=== PATIENT | female | born 1960 | race Caucasian/White ===

== ENCOUNTER → 2017-10-27 | Outpatient (CLI) | payer MEDICARE, OTHER ==
[~2017-10-27] MED LIST: ACYC800 PO; AMLO10 PO; AMLO5 PO; AMOCLA500 PO; AMOCLA875 PO; AMOX875 PO; ASPI81CH PO; ASPI81EC PO; BASAGLAR K100 UNIT/1 SQ; BUME1 PO; CEPH500 PO; CLIN150 PO; CYAN500 PO; Cinnamon500 MG PO; DOCU100 PO; FENT25TP TOP; FERR325 PO; FERSU220EL PO; GABA100 PO; GLIM4 PO; GLIP5 PO; GLIP5ER PO; GUAI120S1 PO; HYDMOR2 PO; HYDR1TAB94 PO; Humalog100 UNIT/1 SC; IBUHYD PO; INSDET100 SC; INSULANPEN; LAVAP17G PO; LEVFLO500 PO; LISI10 PO; LISI5 PO; LOSA50 PO; MAGOX 400400 MG PO; METF500 PO; NIFE30ER PO; Novolin R100 UNIT/M SC; OXYACE5T PO; Omeprazole20 M1 PO; PANT40 PO; PRAV10 PO; PRAV20 PO; PRED20 PO; Protonix40 MG PO; RIFA300 PO; ROXICODONE5 MG PO; SERT25 PO; Vibramycin100 MG PO; WARF2.5 PO; WARF5 PO; ZOLP10 PO
== END ==
LOC: LAB 17:29 → LAB SHORT 17:29
DX: L03.031 Cellulitis of right toe (principal)
CPT/HCPCS: 87070; 87077; 87147; 87186; 87205

== ENCOUNTER 2018-03-27 00:58 | Day surgery (SDC) | payer OTHER ==
[~2018-03-27 00:58] MED LIST changes: +ACET325 PO; +BISA10S PR; +BUME1; +DOCU100; +ENOX100I SC; +Humalog100 UNIT/3 SC; +METF500C PO; +Novolog100 UNIT/2 SC; +ONDA4ODT MM; +PRAV20; +SERT50 PO; +TRAM50; +WARF7.5 PO
== END 2018-03-27 23:58 | disposition home or self-care (01) ==
LOC: WOUND 00:58
PROC: 0KBW0ZZ Excision of Left Foot Muscle, Open Approach (ICD-10-PCS; principal; 2018-03-27)
DX: E11.621 Type 2 diabetes mellitus with foot ulcer (principal); L97.522 Non-pressure chronic ulcer of other part of left foot with fat layer exposed; E11.42 Type 2 diabetes mellitus with diabetic polyneuropathy
CPT/HCPCS: G0463

== ENCOUNTER 2018-04-01 00:21 | Day surgery (SDC) | payer OTHER | END 2018-04-01 22:40 | disposition home or self-care (01) | LOC: WOUND 00:21 | DX: E11.621 Type 2 diabetes mellitus with foot ulcer (principal); L97.512 Non-pressure chronic ulcer of other part of right foot with fat layer exposed; E11.42 Type 2 diabetes mellitus with diabetic polyneuropathy; R60.0 Localized edema; I10 Essential (primary) hypertension; E78.5 Hyperlipidemia, unspecified; Z79.84 Long term (current) use of oral hypoglycemic drugs | CPT/HCPCS: G0463 ==

== ENCOUNTER 2018-04-27 00:32 | Day surgery (SDC) | payer OTHER | END 2018-04-27 23:01 | disposition home or self-care (01) | LOC: WOUND 00:32 | DX: E11.621 Type 2 diabetes mellitus with foot ulcer (principal); L97.521 Non-pressure chronic ulcer of other part of left foot limited to breakdown of skin; E11.42 Type 2 diabetes mellitus with diabetic polyneuropathy; R60.0 Localized edema; Z79.82 Long term (current) use of aspirin; Z79.4 Long term (current) use of insulin; Z79.84 Long term (current) use of oral hypoglycemic drugs ==

== ENCOUNTER 2018-05-14 15:57 | Emergency (ER) | payer OTHER ==
[~2018-05-14] VITALS: Ht 165.1 cm; Wt 106.6 kg
[2018-05-14 17:03] LABS: BASOPHILS ABSOLUTE AUTO 0.04 K/mm3 (0.00-0.23); BASOPHILS PERCENT AUTO 0 % (0-2); EOSINOPHILS ABSOLUTE AUTO 0.38 K/mm3 (0.00-0.68); EOSINOPHILS PERCENT AUTO 3 % (0-6); Hematocrit 36.7 % (33.0-51.0); Hemoglobin 11.7 g/dL (11.5-16.0); IMMATURE GRAN ABSOLUTE AUTO 0.04 K/mm3 (0.00-0.10); IMMATURE GRAN PERCENT AUTO 0 % (0-1); LYMPHOCYTES ABSOLUTE AUTO 3.04 K/mm3 (0.84-5.20); LYMPHOCYTES PERCENT AUTO 25 % (21-46); MONOCYTES ABSOLUTE AUTO 0.96 K/mm3 (0.16-1.47); MONOCYTES PERCENT AUTO 8 % (4-13); Mean Corpuscular HGB Conc 31.9 g/dL (31.5-36.5); Mean Corpuscular Volume 91 fL (80-100); Mean Platelet Volume 10.9 fL (9.1-12.4); NEUTROPHILS ABSOLUTE AUTO 7.57 K/mm3 (1.96-9.15); NEUTROPHILS PERCENT AUTO 63 % (41-73); Platelet Count 329 K/mm3 (150-400); RDW Coefficient Variation 14.9 % (11.7-14.2); RDW Standard Deviation 50.4 fL (35.1-46.3); Red Blood Cell Count 4.04 M/mm3 (3.80-5.20); White Blood Cell Count 12.03 K/mm3 (4.00-11.30)
[2018-05-14 17:19] LABS: Alanine Aminotransfer (ALT/SGP 28 U/L (12-78); Albumin/Globulin Ratio 0.6 (0.8-1.8); Alk Phos 87 U/L (50-136); Anion Gap 8 mmol/L (6-16); Aspartate Aminotrans (AST/SGOT 20 U/L (12-37); Bilirubin, Total 0.3 mg/dL (0.1-1.0); Blood Urea Nitrogen 33 mg/dL (8-24); Bun/Creatinine Ratio 30.8 (12.0-20.0); CO2, Blood 24 mmol/L (21-32); Calcium, Blood 8.8 mg/dL (8.5-10.1); Chloride, Blood 107 mmol/L (98-108); Creatinine, Blood 1.07 mg/dL (0.40-1.00); Globulin, Blood 4.8 g/dL (2.2-4.0); Glomerular Filtration Rate 56 (60-); Glucose, Blood 250 mg/dL (70-99); Potassium, Blood 4.2 mmol/L (3.5-5.5); Sodium, Blood 139 mmol/L (136-145); Total Protein, Blood 7.8 g/dL (6.4-8.2); Troponin I <0.015 ng/mL (0.000-0.040)
[2018-05-14 17:30] LABS: International Normalized Ratio 2.04; Prothrombin Time Results 20.3 Sec (9.7-11.5)
== END 2018-05-14 21:04 | disposition home or self-care (01) ==
LOC: ER 15:57
PROVIDERS: Emergency Medicine
DX: R07.9 Chest pain, unspecified (principal); E11.9 Type 2 diabetes mellitus without complications; D68.51 Activated protein C resistance; Z79.899 Other long term (current) drug therapy; Z79.82 Long term (current) use of aspirin; Z79.4 Long term (current) use of insulin; Z79.01 Long term (current) use of anticoagulants; Z86.711 Personal history of pulmonary embolism; Z86.718 Personal history of other venous thrombosis and embolism
CPT/HCPCS: 36415; 71260; 80053; 82947; 84484; 85025; 85610; 93005; 93010; 96374-59; 96376-59; 99285-25; J3010; Q9967

== ENCOUNTER → 2018-07-20 | Outpatient (CLI) | payer OTHER | END | disposition home or self-care (01) | LOC: PLD 07:59 → LAB SHORT 07:59 | DX: L57.0 Actinic keratosis (principal) | CPT/HCPCS: 88305; 88312 ==

== ENCOUNTER 2018-09-20 22:25 | Emergency (ER) | payer OTHER ==
[~2018-09-20] VITALS: Ht 165.1 cm; Wt 104.3 kg
== END 2018-09-21 01:30 | disposition home or self-care (01) ==
LOC: ER 22:25
DX: S80.12XA Contusion of left lower leg, initial encounter (principal); X58.XXXA Exposure to other specified factors, initial encounter; E11.9 Type 2 diabetes mellitus without complications; Z79.899 Other long term (current) drug therapy; Z79.4 Long term (current) use of insulin; Z79.82 Long term (current) use of aspirin; Z79.01 Long term (current) use of anticoagulants; Z79.891 Long term (current) use of opiate analgesic
CPT/HCPCS: 99283

== ENCOUNTER 2020-06-01 15:40 | Observation (INO) | payer OTHER ==
[~2020-06-01] VITALS: Ht 165.1 cm; Wt 102.2 kg
[~2020-06-01 15:40] MED LIST changes: +Aspir 8181 MG PO; +INSULANPEN SC
[2020-06-01 17:42] LABS: BASOPHILS ABSOLUTE AUTO 0.06 K/mm3 (0.00-0.23); BASOPHILS PERCENT AUTO 1 % (0-2); EOSINOPHILS ABSOLUTE AUTO 0.35 K/mm3 (0.00-0.68); EOSINOPHILS PERCENT AUTO 3 % (0-6); Hematocrit 37.9 % (33.0-51.0); Hemoglobin 11.9 g/dL (11.5-16.0); IMMATURE GRAN ABSOLUTE AUTO 0.14 K/mm3 (0.00-0.10); IMMATURE GRAN PERCENT AUTO 1 % (0-1); LYMPHOCYTES PERCENT AUTO 23 % (21-46); MONOCYTES ABSOLUTE AUTO 1.08 K/mm3 (0.16-1.47); MONOCYTES PERCENT AUTO 10 % (4-13); Mean Corpuscular HGB 28.3 pg (26.0-34.0); Mean Corpuscular HGB Conc 31.4 g/dL (31.5-36.5); Mean Corpuscular Volume 90 fL (80-100); Mean Platelet Volume 10.4 fL (9.1-12.4); NEUTROPHILS ABSOLUTE AUTO 6.97 K/mm3 (1.96-9.15); NEUTROPHILS PERCENT AUTO 63 % (41-73); Platelet Count 404 K/mm3 (150-400); RDW Coefficient Variation 14.6 % (11.7-14.2); RDW Standard Deviation 47.8 fL (35.1-46.3); Red Blood Cell Count 4.21 M/mm3 (3.80-5.20)
[2020-06-01 17:57] LABS: International Normalized Ratio 1.02; Prothrombin Time Results 10.9 Sec (9.7-11.5)
[2020-06-01 17:59] LABS: Albumin, Blood 3.4 g/dL (3.4-5.0); Albumin/Globulin Ratio 0.6 (0.8-1.8); Bilirubin, Total 0.2 mg/dL (0.1-1.0); Bun/Creatinine Ratio 28.4 (12.0-20.0); Calcium, Blood 9.4 mg/dL (8.5-10.1); Creatinine, Blood 2.22 mg/dL (0.40-1.00); Globulin, Blood 5.9 g/dL (2.2-4.0); Potassium, Blood 4.6 mmol/L (3.5-5.5); Total Protein, Blood 9.3 g/dL (6.4-8.2)
[2020-06-01] MEDS ORDERED: GABAPENTIN600 MG PO (18:43)
[2020-06-01] MEDS ORDERED: DILTIAZEM 24HR120 M4 PO (18:44)
[2020-06-01] MEDS ORDERED: CITALOPRAM HBR20 M1 PO (18:44)
[2020-06-01] MEDS ORDERED: TRULICITY1.5 MG/0.1 SC (18:44)
[2020-06-01] MEDS ORDERED: BUMETANIDE2 M1 PO (18:44)
[2020-06-01] MEDS ORDERED: ELIQUIS5 M3 PO (18:45)
[2020-06-01] MEDS ORDERED: FENOFIBRATE48 MG PO (18:45)
[2020-06-01] MEDS ORDERED: METFORMIN HCL1000 M6 PO (18:46)
[2020-06-01] MEDS ORDERED: METOPROLOL SUCC25 MG PO (18:46)
[2020-06-01] MEDS ORDERED: Pravachol40 MG PO (18:47)
[2020-06-01] MEDS ORDERED: NOVOLOG FL100 UNIT/3 SC (18:47)
[2020-06-01] MEDS ORDERED: OLMESARTAN MEDO40 MG PO (18:47)
--- NOTE | 2020-06-02 00:04 | NUR ---
AT 2325 ATTEMPTED TO CALL FOR REPORT, AWAITING CALL BACK.
--- NOTE | 2020-06-02 05:25 | NUR ---
LAST TRIMMER SUMMARY PT ADMITTED TO UNIT FROM ED APPROXIMATELY AT 0032 THIS SHIFT. RECEIVED REPORT FROM ESMER BOYD. PT A&OX4, ABLE TO MAKE NEEDS KNOWN. PLEASANT AND COOPERATIVE TO CARE. PT REPORTED INTERMITTENT PAIN ON KNOT/LUMP ON LLE, PT DID NOT NEED ANY MEDICATION FOR PAIN T/O SHIFT. CALM AND RESTED IN BED T/O SHIFT. NO C/O CP, SOB OR N&V. PT SBA TO THE BATHROOM, CALLS APPROPRIATELY FOR ASSISTANCE. NO C/O DYSURIA. BED AT LOWEST POSITION. CALL LIGHT WITHIN REACH.
--- NOTE | 2020-06-02 12:17 | NUR ---
CARE COORDINATION REFERRAL - ADMIT: 06/02/20 DISCHARGE: DX: ACUTE RENAL FAILURE CC: jacquelyn RICKY CALL: RESIDENCE: HOME CAREGIVER: BRADEN FREGOSO, FAMILY MEMBER, DX:HTN, CVA, DM-TYPE 2, HYPERLIPIDEMIA DME: DM SUPPLIES, BP KIT CCM: REFERRAL 2020 HOME HEALTH: NONE SUMMARY: ADMIT: 06/02/20
--- NOTE | 2020-06-02 16:13 | NUR ---
CARE COORDINATION REFERRAL - ADMIT: 06/02/20 DISCHARGE: DX: ACUTE RENAL FAILURE CC: RICKY CALL: RESIDENCE: HOME CAREGIVER: BRADEN FREGOSO, FAMILY MEMBER, DX:HTN, CVA, DM-TYPE 2, HYPERLIPIDEMIA DME: DM SUPPLIES, BP KIT CCM: REFERRAL 2020 HOME HEALTH: NONE SUMMARY: ADMIT: 06/02/20 06/02/20- PER DR. EWING, PT COULD POTENTIALLY BE D/C OVER THE WEEKEND. -CHELW
--- NOTE | 2020-06-02 19:31 | NUR ---
SHIFT SUMMARY PT IS A&O, INDEPENDENT IN . ADMITTED FOR ARF AND DVT TO [facility]. PT RECEIVING LOVENOX BID AND STARTED BACK ON COUMADIN TONIGHT. DIABETIC WITH TOES AMPUTATED ON L FOOT. IVF'S INFUSING PER EMAR. PT TO D/C TO HOME TOMORROW. NO C/O. CALL LT IN REACH. VERY PLEASANT AND CO-OP.
[2020-06-03 05:18] LABS: BASOPHILS ABSOLUTE AUTO 0.04 K/mm3 (0.00-0.23); BASOPHILS PERCENT AUTO 1 % (0-2); EOSINOPHILS PERCENT AUTO 5 % (0-6); Hematocrit 32.1 % (33.0-51.0); IMMATURE GRAN ABSOLUTE AUTO 0.07 K/mm3 (0.00-0.10); IMMATURE GRAN PERCENT AUTO 1 % (0-1); LYMPHOCYTES ABSOLUTE AUTO 2.64 K/mm3 (0.84-5.20); LYMPHOCYTES PERCENT AUTO 36 % (21-46); MONOCYTES ABSOLUTE AUTO 0.88 K/mm3 (0.16-1.47); MONOCYTES PERCENT AUTO 12 % (4-13); Mean Corpuscular HGB 28.2 pg (26.0-34.0); Mean Corpuscular HGB Conc 31.2 g/dL (31.5-36.5); Mean Corpuscular Volume 90 fL (80-100); Mean Platelet Volume 10.2 fL (9.1-12.4); NEUTROPHILS ABSOLUTE AUTO 3.38 K/mm3 (1.96-9.15); NEUTROPHILS PERCENT AUTO 46 % (41-73); Platelet Count 304 K/mm3 (150-400); RDW Coefficient Variation 14.4 % (11.7-14.2); RDW Standard Deviation 47.8 fL (35.1-46.3); Red Blood Cell Count 3.55 M/mm3 (3.80-5.20); White Blood Cell Count 7.41 K/mm3 (4.00-11.30)
[2020-06-03 05:49] LABS: Albumin, Blood 2.7 g/dL (3.4-5.0); Albumin/Globulin Ratio 0.6 (0.8-1.8); Bilirubin, Total 0.1 mg/dL (0.1-1.0); Bun/Creatinine Ratio 23.9 (12.0-20.0); Calcium, Blood 9.1 mg/dL (8.5-10.1); Creatinine, Blood 1.97 mg/dL (0.40-1.00); Globulin, Blood 4.8 g/dL (2.2-4.0); Potassium, Blood 4.7 mmol/L (3.5-5.5); Total Protein, Blood 7.5 g/dL (6.4-8.2)
[2020-06-03 05:56] LABS: International Normalized Ratio 1.16; Prothrombin Time Results 12.3 Sec (9.7-11.5)
--- NOTE | 2020-06-03 07:32 | NUR ---
SHIFT SUMMARY: PATIENT REPORTS NO PAIN ONE ISOLATED ELEVATED BP WAS OBSERVED. PATIENT WAS ASYMPTOMATIC. UP TO THE BATHROOM INDEPEDANTLY VOIDING LARGE AMOUNTS OR URINE.
--- NOTE | 2020-06-03 12:08 | NUR ---
INSULIN CHANGES BLOOD SUGAR 94 AND 209 RESPECTIVELY FOR BREAKFAST AND DINNER. PATIENT ORDERED TO HAVE 15 U WITH MEALS. DISCUSSED WITH Krysten HENSON TO CHANGE TO A MEDIUM CORRECTION SCALE. EMAR UPDATED.
--- NOTE | 2020-06-03 17:02 | NUR ---
Shift Summary A/Ox4. Pleasant/cooperative. Up independently in room. Calls for needs appropriately. Had shower today. Tele: SR 73's, tele has been d/c'd per T.O. from Dr. Navarro. Denies pain, nausea, SOB. Lovenox administration education provided, patient verbalized understanding and also returned demonstration. Possible discharge tomorrow. No acute changes, WCTM.
[2020-06-04 05:22] LABS: International Normalized Ratio 1.45; Prothrombin Time Results 15.2 Sec (9.7-11.5)
--- NOTE | 2020-06-04 07:00 | NUR ---
PT IS A/O, STANDBY ASSIST TO RESTROOM, POSSIBLE D/C TODAY ON LOVEOX FOR DVT. HX OF LEFT TOE AMPUTATIONS X 4. CBG AC/HS.
[2020-06-04] MEDS ORDERED: ENOX100I SC (15:38)
[2020-06-04] MEDS ORDERED: WARF5 PO (15:39)
--- NOTE | 2020-06-04 16:07 | NUR ---
DISCHARGE REVIEWD WITH PT. SHE VERBALIZED UNDERSTANDING MEDS AND INST. IV PULLED INTACT. NO TELE. PT AWARE OF LOVENOX INSTRUCTIONS, HAS DONE BEFORE. PT WHEELED TO DO BY AIDE AT 1615
[2020-07-27] MEDS ORDERED: ELIQUIS5 MG PO (09:59)
== END 2020-06-04 16:10 | disposition home or self-care (01) ==
LOC: ER 15:40 → MEDS 15:41 → ER 06-02 00:27 → MEDS 06-02 00:27
PROVIDERS: Emergency Medicine; Internal Medicine; Pharmacist; ADMIT Internal Medicine
DX: N17.9 Acute kidney failure, unspecified (principal); N18.30 Chronic kidney disease, stage 3 unspecified; I82.432 Acute embolism and thrombosis of left popliteal vein; I82.442 Acute embolism and thrombosis of left tibial vein; D68.51 Activated protein C resistance; E11.22 Type 2 diabetes mellitus with diabetic chronic kidney disease; Z79.01 Long term (current) use of anticoagulants; Z79.84 Long term (current) use of oral hypoglycemic drugs; Z79.82 Long term (current) use of aspirin; Z79.899 Other long term (current) drug therapy
CPT/HCPCS: 36415; 71260; 80053; 82947; 83880; 84484; 85025; 85610; 85730; 93971; 96361; 96372; 96372-59; 96374; 96375; 99285-25; A9270; G0378; J1200; J1650; J1815; J2765; J7030; J7120; Q9967

== ENCOUNTER → 2020-06-19 | Outpatient (CLI) | payer OTHER ==
[~2020-06-19] MED LIST changes: +BUMETANIDE2 M1 PO; +CITALOPRAM HBR20 M1 PO; +DILTIAZEM 24HR120 M4 PO; +ELIQUIS5 M3 PO; +FENOFIBRATE48 MG PO; +GABAPENTIN600 MG PO; +METFORMIN HCL1000 M6 PO; +METOPROLOL SUCC25 MG PO; +NOVOLOG FL100 UNIT/3 SC; +OLMESARTAN MEDO40 MG PO; +Pravachol40 MG PO; +TRULICITY1.5 MG/0.1 SC
== END | disposition home or self-care (01) ==
LOC: LAB SHORT 10:59
DX: L97.529 Non-pressure chronic ulcer of other part of left foot with unspecified severity (principal)
CPT/HCPCS: 88305; 88311

== ENCOUNTER 2020-08-03 07:05 | Day surgery (SDC) | payer OTHER ==
[~2020-08-03] VITALS: Ht 165.1 cm; Wt 104.3 kg
[~2020-08-03 07:05] MED LIST changes: +ELIQUIS5 MG PO
--- NOTE | 2020-08-03 07:56 | NUR ---
08/03/20 0756 Sonia Chou TETRACAINE DROP PLACED IN RIGHT EYE PER ORDERS AT 0756
== END 2020-08-03 09:11 | disposition home or self-care (01) ==
LOC: ORSCSDS 07:05
PROVIDERS: Ophthalmology
PROC: 08RJ3JZ Replacement of Right Lens with Synthetic Substitute, Percutaneous Approach (ICD-10-PCS; principal; 2020-08-03 08:45)
DX: H25.11 Age-related nuclear cataract, right eye (principal); I10 Essential (primary) hypertension; E11.9 Type 2 diabetes mellitus without complications; N18.9 Chronic kidney disease, unspecified; D68.51 Activated protein C resistance; I25.2 Old myocardial infarction; E66.01 Morbid (severe) obesity due to excess calories; Z68.38 Body mass index [BMI] 38.0-38.9, adult; Z79.84 Long term (current) use of oral hypoglycemic drugs; Z79.899 Other long term (current) drug therapy
CPT/HCPCS: 82947; J2001; J2250; J3010; J3301; V2632

== ENCOUNTER 2020-08-24 07:07 | Day surgery (SDC) | payer OTHER ==
[~2020-08-24] VITALS: Ht 165.1 cm; Wt 104.3 kg
--- NOTE | 2020-08-24 07:42 | NUR ---
08/24/20 0742 Nathan Liang AT 0722 EYE DROPS AND PLEGGETT PLACED ON THE LEFT EYE PER NATHAN KHAN.
== END 2020-08-24 12:55 | disposition home or self-care (01) ==
LOC: ORSCSDS 07:07
PROVIDERS: Ophthalmology
PROC: 08RK3JZ Replacement of Left Lens with Synthetic Substitute, Percutaneous Approach (ICD-10-PCS; principal; 2020-08-24 08:30)
DX: H25.12 Age-related nuclear cataract, left eye (principal); E11.36 Type 2 diabetes mellitus with diabetic cataract; I10 Essential (primary) hypertension; Z86.73 Personal history of transient ischemic attack (TIA), and cerebral infarction without residual deficits; D68.51 Activated protein C resistance; E66.9 Obesity, unspecified; Z68.38 Body mass index [BMI] 38.0-38.9, adult; Z79.4 Long term (current) use of insulin; Z79.899 Other long term (current) drug therapy
CPT/HCPCS: 82947; J2001; J2250; J3010; J3301; J7040; V2632

== ENCOUNTER 2020-08-27 17:14 | Emergency (ER) | payer OTHER ==
[~2020-08-27] VITALS: Ht 165.1 cm; Wt 104.3 kg
== END 2020-08-27 18:58 | disposition home or self-care (01) ==
LOC: ER 17:14
DX: M25.562 Pain in left knee (principal); E11.9 Type 2 diabetes mellitus without complications; Z79.4 Long term (current) use of insulin; Z79.899 Other long term (current) drug therapy; Z79.01 Long term (current) use of anticoagulants; Z86.718 Personal history of other venous thrombosis and embolism
CPT/HCPCS: 73562-LT; 99282; A9270

== ENCOUNTER 2021-09-27 07:18 | Day surgery (SDC) | payer OTHER ==
[~2021-09-27] VITALS: Ht 165.1 cm; Wt 112.0 kg
--- NOTE | 2021-09-27 07:45 | NUR ---
PT STATES SHE HAS CHRONIC NECK AND BACK PAIN. PT STATES 5/10 CHEST PAIN FOR PAST "COUPLE OF MONTHS".
--- NOTE | 2021-09-27 10:44 | NUR ---
PATIENT RESTING IN BED. VISITING WITH FAMILY. TR BAND AND WRIST BOARD IN PLACE. RIGHT RADIAL SITE STABLE.
[2021-09-27] MEDS ORDERED: CLOP75 PO (11:57)
--- NOTE | 2021-09-27 14:30 | NUR ---
PATIENT VERBALIZED UNDERSTANDING OF DISCHARGE INSTRUCTIONS AND PRECAUTIONS. RIGHT RADIAL SITE SOFT AND NONTENDER, NO HEMATOMA, NO BLEEDING. CLOTH DOT PLACED TO INCISION. WRIST BOARD PLACED TO RIGHT WRIST. IV SITE DCED WITH CATHETER INTACT. NO FURTHER QUSETIONS. PATIENT TAKEN VIA WHEEL CHAIR TO WAITING CAR. BROTHER DRIVING.
== END 2021-09-27 15:01 | disposition home or self-care (01) ==
LOC: MHTC 07:18
DX: I25.110 Atherosclerotic heart disease of native coronary artery with unstable angina pectoris (principal); I08.0 Rheumatic disorders of both mitral and aortic valves; E78.5 Hyperlipidemia, unspecified; D68.51 Activated protein C resistance; E11.22 Type 2 diabetes mellitus with diabetic chronic kidney disease; I12.9 Hypertensive chronic kidney disease with stage 1 through stage 4 chronic kidney disease, or unspecified chronic kidney disease; N18.2 Chronic kidney disease, stage 2 (mild); E66.01 Morbid (severe) obesity due to excess calories; Z68.41 Body mass index [BMI] 40.0-44.9, adult; Z86.718 Personal history of other venous thrombosis and embolism; Z79.01 Long term (current) use of anticoagulants; Z89.422 Acquired absence of other left toe(s); Z79.4 Long term (current) use of insulin
CPT/HCPCS: 76937; 82947; 85347; 93454; 99152; 99153; A9270; C1725; C1769; C1874; C1887; C1894; C9600; J1644; J2250; J3010; J7030; J7040; Q9967

== ENCOUNTER 2022-05-20 12:50 | Observation (INO) | payer OTHER ==
[~2022-05-20] VITALS: Ht 165.1 cm; Wt 112.3 kg
[~2022-05-20 12:50] MED LIST changes: +CLOP75 PO; -Pravachol40 MG PO
[2022-05-20 13:25] LABS: BASOPHILS ABSOLUTE AUTO 0.03 K/mm3 (0.00-0.23); BASOPHILS PERCENT AUTO 0 % (0-2); EOSINOPHILS ABSOLUTE AUTO 0.24 K/mm3 (0.00-0.68); EOSINOPHILS PERCENT AUTO 3 % (0-6); Hematocrit 37.7 % (33.0-51.0); Hemoglobin 12.2 g/dL (11.5-16.0); IMMATURE GRAN ABSOLUTE AUTO 0.05 K/mm3 (0.00-0.10); IMMATURE GRAN PERCENT AUTO 1 % (0-1); LYMPHOCYTES ABSOLUTE AUTO 1.54 K/mm3 (0.84-5.20); LYMPHOCYTES PERCENT AUTO 21 % (21-46); MONOCYTES ABSOLUTE AUTO 0.73 K/mm3 (0.16-1.47); MONOCYTES PERCENT AUTO 10 % (4-13); Mean Corpuscular HGB 29.3 pg (26.0-34.0); Mean Corpuscular HGB Conc 32.4 g/dL (31.5-36.5); Mean Corpuscular Volume 91 fL (80-100); Mean Platelet Volume 10.4 fL (9.1-12.4); NEUTROPHILS ABSOLUTE AUTO 4.82 K/mm3 (1.96-9.15); NEUTROPHILS PERCENT AUTO 65 % (41-73); Platelet Count 309 K/mm3 (150-400); RDW Coefficient Variation 14.9 % (11.7-14.2); RDW Standard Deviation 50.1 fL (35.1-46.3); Red Blood Cell Count 4.16 M/mm3 (3.80-5.20); White Blood Cell Count 7.41 K/mm3 (4.00-11.30)
[2022-05-20 14:16] LABS: Albumin, Blood 3.3 g/dL (3.4-5.0); Albumin/Globulin Ratio 0.7 (0.8-1.8); Bilirubin, Total 0.2 mg/dL (0.1-1.0); Bun/Creatinine Ratio 16.7 (12.0-20.0); Calcium, Blood 8.9 mg/dL (8.5-10.1); Creatinine, Blood 2.51 mg/dL (0.40-1.00); Total Protein, Blood 8.3 g/dL (6.4-8.2)
[2022-05-20] MEDS ORDERED: Insulin Glargine-Yfg SC (18:55)
[2022-05-20] MEDS ORDERED: ELIQUIS5 M2 PO (18:56)
[2022-05-20] MEDS ORDERED: CELEXA40 M1 PO (18:57)
[2022-05-20] MEDS ORDERED: CLOP75 PO (18:58)
[2022-05-20] MEDS ORDERED: GABA300 PO (18:59)
[2022-05-20] MEDS ORDERED: HUMALOG MI100 UNIT/2 SC (19:00)
[2022-05-20] MEDS ORDERED: ISOSORBIDE MONO30 MG PO (19:01)
[2022-05-20] MEDS ORDERED: METO50ER PO (19:02)
[2022-05-20] MEDS ORDERED: OLME20 PO (19:03)
[2022-05-20] MEDS ORDERED: PRAVASTATIN SOD10 M1 PO (19:04)
[2022-05-20 20:39] VITALS: BP 142/78
[2022-05-20 21:07] LABS: Creatine Kinase MB 1.4 ng/mL (0.0-3.6); Creatine Kinase MB Index 1.5 (0.0-4.0)
--- NOTE | 2022-05-20 21:51 | NUR ---
ADMIT NOTE PT ARRIVED TO FLOOR VIA WHEELCHAIR. PT ORIENTED TO UNIT. PERSONAL POSSESSIONS WITH PT. CALL BUTTON WITHIN REACH. TELEMETRY IS MONITORING.
[2022-05-21] VITALS (7 sets, daily range): BP systolic 118–174; BP diastolic 71–90
--- NOTE | 2022-05-21 04:43 | NUR ---
SHIFT SUMMARY FULL CODE. PT CAME IN WITH PAIN TO CHEST AND BACK X 1 MONTH. PT IS INDEPENDENT EXCEPT FOR SCDs WHICH SHE REMOVES HERSELF OR CALLS TO ASK FOR ASSISTANCE APPROPRIATELY. USES HUMULIN, HUMALOG AND LANTUS FOR BLOOD SUGAR CONTROL. SHE IS ON TELE. IV TO LAC SL. FLUSHES EASILY. A&O X 4. ABLE TO MAKE NEEDS KNOWN. WILL CONTINUE TO MONITOR AND PROVIDE CARE T/O SHIFT.
[2022-05-21 05:25] LABS: BASOPHILS ABSOLUTE AUTO 0.03 K/mm3 (0.00-0.23); BASOPHILS PERCENT AUTO 0 % (0-2); EOSINOPHILS ABSOLUTE AUTO 0.24 K/mm3 (0.00-0.68); EOSINOPHILS PERCENT AUTO 3 % (0-6); Hematocrit 34.8 % (33.0-51.0); Hemoglobin 10.9 g/dL (11.5-16.0); IMMATURE GRAN ABSOLUTE AUTO 0.03 K/mm3 (0.00-0.10); IMMATURE GRAN PERCENT AUTO 0 % (0-1); LYMPHOCYTES ABSOLUTE AUTO 2.22 K/mm3 (0.84-5.20); LYMPHOCYTES PERCENT AUTO 27 % (21-46); MONOCYTES ABSOLUTE AUTO 0.84 K/mm3 (0.16-1.47); MONOCYTES PERCENT AUTO 10 % (4-13); Mean Corpuscular HGB 28.8 pg (26.0-34.0); Mean Corpuscular HGB Conc 31.3 g/dL (31.5-36.5); Mean Corpuscular Volume 92 fL (80-100); Mean Platelet Volume 10.4 fL (9.1-12.4); NEUTROPHILS ABSOLUTE AUTO 4.97 K/mm3 (1.96-9.15); NEUTROPHILS PERCENT AUTO 60 % (41-73); Platelet Count 283 K/mm3 (150-400); RDW Standard Deviation 50.6 fL (35.1-46.3); Red Blood Cell Count 3.79 M/mm3 (3.80-5.20); White Blood Cell Count 8.33 K/mm3 (4.00-11.30)
[2022-05-21 06:00] LABS: Albumin, Blood 2.9 g/dL (3.4-5.0); Albumin/Globulin Ratio 0.7 (0.8-1.8); Bilirubin, Total 0.2 mg/dL (0.1-1.0); Bun/Creatinine Ratio 17.5 (12.0-20.0); Calcium, Blood 8.6 mg/dL (8.5-10.1); Creatinine, Blood 2.12 mg/dL (0.40-1.00); Globulin, Blood 4.4 g/dL (2.2-4.0); Potassium, Blood 4.8 mmol/L (3.5-5.5); Total Protein, Blood 7.3 g/dL (6.4-8.2)
--- NOTE | 2022-05-21 16:40 | NUR ---
PT AOX4 AND COOPERATIVE OF CARE. PT HAS ONLY REPORTED PAIN MIDDLE OF BACK. DR ROQUE ORDERED MEDS TO EMAR AND HEAT PAD APPLIED. PT INDEPENDENT IN ROOM NO DISTRESS NOTED AT THIS TIME CALL LIGHT WITHIN REACH WILL CONTINUE TO MONITOR.
[2022-05-22 02:55] VITALS: BP 141/88
--- NOTE | 2022-05-22 04:23 | NUR ---
SHIFT SUMMARY PT MEDICATED FOR PAIN EARLIER IN SHIFT PER EMAR. REPORTED RELIEF UPON REEVALUATION. SEE EMAR. IV FLUIDS INFUSING WITHOUT DIFFICULTY. HAS HAD NO CAFFEINE OR DECAF BEVERAGES THIS SHIFT. IS TO HAVE SECOND PART OF STRESS TEST TODAY AT 1330. NPO AFTER BREAKFAST. WILL RELAY THIS TO ONCOMING SHIFT. INDEPENDENT IN ROOM. CALL LIGHT WITHIN REACH. ABLE TO MAKE NEEDS KNOWN. BED IN LOW POSITION. WILL CONTINUE TO MONITOR AND PROVIDE CARE T/O SHIFT.
[2022-05-22 07:22] VITALS: BP 110/70
[2022-05-22] MEDS ORDERED: Isosorbide Mono30 MG PO (15:42)
[2022-05-22] MEDS ORDERED: TIZA4 PO (15:44)
--- NOTE | 2022-05-22 19:58 | NUR ---
DISCHARGE- PT IS ALERT AND ORIENTED X4. INDEPENDENT IN THE ROOM, R/A. DISCHARGE EDUCATION DISCUSSED WITH PT.
== END 2022-05-22 18:16 | disposition home or self-care (01) ==
LOC: ER 12:50 → MEDS 12:51
PROVIDERS: Family Medicine; Physician Assistant; ADMIT Student in an Organized Health Care Education/Training Program
DX: R07.9 Chest pain, unspecified (principal); E87.5 Hyperkalemia; M62.81 Muscle weakness (generalized); N17.9 Acute kidney failure, unspecified; I12.9 Hypertensive chronic kidney disease with stage 1 through stage 4 chronic kidney disease, or unspecified chronic kidney disease; N18.4 Chronic kidney disease, stage 4 (severe); E11.22 Type 2 diabetes mellitus with diabetic chronic kidney disease; F32.9 Major depressive disorder, single episode, unspecified; E78.5 Hyperlipidemia, unspecified; I25.10 Atherosclerotic heart disease of native coronary artery without angina pectoris; Z23 Encounter for immunization; I08.0 Rheumatic disorders of both mitral and aortic valves; E66.9 Obesity, unspecified; Z68.41 Body mass index [BMI] 40.0-44.9, adult; Z79.899 Other long term (current) drug therapy; Z79.4 Long term (current) use of insulin; Z79.01 Long term (current) use of anticoagulants
CPT/HCPCS: 36415; 71046; 78452; 80053; 82550; 82553; 82947; 83690; 83735; 84132; 84484; 85025; 90686; 93005; 93010; 93017; 94644; 94664; 96361; 96374; 96375; 96376; 99285-25; A9270; A9500; G0008; G0378; J0360; J0610; J0706; J1815; J2785; J7030; J7799

== ENCOUNTER → 2023-04-14 | Outpatient (CLI) | payer OTHER ==
[~2023-04-14] MED LIST changes: +CELEXA40 M1 PO; +ELIQUIS5 M2 PO; +GABA300 PO; +HUMALOG MI100 UNIT/2 SC; +ISOSORBIDE MONO30 MG PO; +Insulin Glargine-Yfg SC; +Isosorbide Mono30 MG PO; +METO50ER PO; +OLME20 PO; +PRAVASTATIN SOD10 M1 PO; +TIZA4 PO
[2023-04-18 13:07] LABS: HPV GENOTYPE 16 Not Detected; HPV GENOTYPE 18 Not Detected; HPV HIGH RISK Not Detected; HPV SOURCE Cervical
== END ==
LOC: LAB 08:00 → LAB SHORT 08:00
PROVIDERS: Nurse Practitioner Family
DX: Z01.419 Encounter for gynecological examination (general) (routine) without abnormal findings (principal)
CPT/HCPCS: 87624; G0123

== ENCOUNTER 2023-05-07 05:49 | Day surgery (SDC) | payer OTHER ==
[~2023-05-07] VITALS: Ht 165.1 cm; Wt 117.0 kg
[2023-05-07] VITALS (8 sets, daily range): BP systolic 122–157; BP diastolic 70–105
[2023-05-07] MEDS ORDERED: Sodium Chloride 0.45% 1,000 ML IV ONE (06:44)
--- NOTE | 2023-05-07 06:45 | NUR ---
1/2 NS STARTED AT 125ML/HR FOR PRE HYDRATION.
[2023-05-07] MEDS ORDERED: NS 1,000 ML IV ONE ×2 (10:20→10:28)
[2023-05-07] MEDS ORDERED: Heparin Sodium 1000 Units/ML 10ML MDV ONE ×2 (10:20→10:28)
[2023-05-07] MEDS ORDERED: NS 250 ML IV ONE (10:28)
[2023-05-07] MEDS ORDERED: Nitroglycerin 2 MG/20 ML BTL ONE (10:29)
[2023-05-07] MEDS ORDERED: NiCARdipine HCL 1,000 MCG/5 ML SYR ONE (10:29)
[2023-05-07] MEDS ORDERED: Midazolam HCl 1MG / ML 2ML Vial ONE (10:48)
[2023-05-07] MEDS ORDERED: FentaNYL Citrate 50 MCG/ML 2 ML Injection ONE (10:48)
--- NOTE | 2023-05-07 11:30 | NUR ---
PATIENT ARRIVED TO RECOVERY ROOM, CONVERSING APPROPRIATELY, SITTING UPRIGHT IN RECLINER. R RADIAL TR BAND IN P[LACE, SITE C/D/I SOFT/NONTENDER, NO EVIDENCE OF BLEEDING. VSS ON RA. FLUIDS RUNNING AT 125 MLS/HR
--- NOTE | 2023-05-07 12:35 | NUR ---
ASSUMED CARE OF PATIENT
--- NOTE | 2023-05-07 12:40 | NUR ---
INITAL 2 CC OF AIR REMOVED FROM R RADIAL TR BAND. SITE C/D/I SOFT/NONTENDER, NO EVIDENCE OF BLEEDING. VSS ON RA. PATIENT DENYING ANY PAIN
--- NOTE | 2023-05-07 13:11 | NUR ---
ALL AIR REMOVED FROM R RADIAL TR BAND. SITE C/D/I SOFT/NONTENDER, NO EVIDENCE OF BLEEDING. PATIENT DENYING ANY PAIN. PATIENT TOLERATING PO INTAKE WELL. VSS ON RA
--- NOTE | 2023-05-07 13:18 | NUR ---
IV FLUIDS STOPPED. PATIENT RECIEVED 718 mL total (preop and postop). PIV SALINE LOCKED.
--- NOTE | 2023-05-07 13:50 | NUR ---
PATIENT DISCHARGED HOME AT THIS TIME. DISCHARGE PAPERWORK REVIEWED WITH PATIENT AND FAMILY AT BEDSIDE. ALL QUESTIONS WERE ANSWERED. PIV REMOVED WITHOUT DIFFICULTY, CATHETER INTACT. TR BAND REMOVED, SITE C/D/I SOFT/NONTENDER, NO EVIDENCE OF BLEEDING. CLOTH DOT AND ARM BOARD IN PLACE. PATIENT WHEELED TO HOSPITAL ENTRANCE, FAMILY ABLE TO PROVIDE TRANSPORTATION HOME. ALL PATIENT BELONGINGS AND PAPERWORK LEFT WITH PATIENT.
== END 2023-05-07 13:45 | disposition home or self-care (01) ==
LOC: MHTC 05:49
DX: I25.10 Atherosclerotic heart disease of native coronary artery without angina pectoris (principal); I35.0 Nonrheumatic aortic (valve) stenosis; E66.01 Morbid (severe) obesity due to excess calories; N18.4 Chronic kidney disease, stage 4 (severe); I12.9 Hypertensive chronic kidney disease with stage 1 through stage 4 chronic kidney disease, or unspecified chronic kidney disease; I05.0 Rheumatic mitral stenosis; Z89.422 Acquired absence of other left toe(s); Z79.4 Long term (current) use of insulin
CPT/HCPCS: 76937; 99152; A9270; C1769; C1887; C1894; J1644; J2250; J3010; J7030; J7050; Q9967

== ENCOUNTER → 2023-08-19 | Outpatient (CLI) | payer OTHER ==
[2023-08-19 19:07] LABS: International Normalized Ratio 1.05; Prothrombin Time Results 11.2 Sec (9.7-11.5)
== END ==
LOC: LAB 18:23 → LAB SHORT 18:23
PROVIDERS: Nurse Practitioner Family
DX: Z79.01 Long term (current) use of anticoagulants (principal)
CPT/HCPCS: 85610

== ENCOUNTER 2023-09-02 05:51 | Emergency (ER) | payer OTHER ==
[~2023-09-02] VITALS: Ht 165.1 cm; Wt 119.8 kg
[2023-09-02 06:28] LABS: BASOPHILS ABSOLUTE AUTO 0.04 K/mm3 (0.00-0.23); BASOPHILS PERCENT AUTO 1 % (0-2); EOSINOPHILS ABSOLUTE AUTO 0.17 K/mm3 (0.00-0.68); EOSINOPHILS PERCENT AUTO 3 % (0-6); Hematocrit 29.1 % (33.0-51.0); Hemoglobin 8.8 g/dL (11.5-16.0); IMMATURE GRAN ABSOLUTE AUTO 0.02 K/mm3 (0.00-0.10); IMMATURE GRAN PERCENT AUTO 0 % (0-1); LYMPHOCYTES ABSOLUTE AUTO 0.83 K/mm3 (0.84-5.20); LYMPHOCYTES PERCENT AUTO 16 % (21-46); MONOCYTES ABSOLUTE AUTO 0.86 K/mm3 (0.16-1.47); MONOCYTES PERCENT AUTO 17 % (4-13); Mean Corpuscular HGB 28.3 pg (26.0-34.0); Mean Corpuscular HGB Conc 30.2 g/dL (31.5-36.5); Mean Corpuscular Volume 94 fL (80-100); Mean Platelet Volume 9.6 fL (9.1-12.4); NEUTROPHILS ABSOLUTE AUTO 3.28 K/mm3 (1.96-9.15); NEUTROPHILS PERCENT AUTO 63 % (41-73); Platelet Count 337 K/mm3 (150-400); RDW Coefficient Variation 16.4 % (11.7-14.2); RDW Standard Deviation 55.8 fL (35.1-46.3); Red Blood Cell Count 3.11 M/mm3 (3.80-5.20)
[2023-09-02 06:41] LABS: Albumin, Blood 3.3 g/dL (3.4-5.0); Albumin/Globulin Ratio 0.7 (0.8-1.8); Bilirubin, Total 0.3 mg/dL (0.1-1.0); Bun/Creatinine Ratio 18.4 (12.0-20.0); Calcium, Blood 9.2 mg/dL (8.5-10.1); Creatinine, Blood 2.5 mg/dL (0.40-1.00); Globulin, Blood 4.9 g/dL (2.2-4.0); Potassium, Blood 4.3 mmol/L (3.5-5.5); Total Protein, Blood 8.2 g/dL (6.4-8.2)
[2023-09-02] MEDS ORDERED: Calcium Carbon500 MG PO (06:42)
[2023-09-02] MEDS ORDERED: MULVITA PO (06:43)
[2023-09-02] MEDS ORDERED: OXYC5 PO (06:44)
[2023-09-02] MEDS ORDERED: MIRALAX17 GM PO (06:44)
[2023-09-02] MEDS ORDERED: ACET500 PO (06:45)
[2023-09-02] MEDS ORDERED: WARF5 PO (06:45)
[2023-09-02] MEDS ORDERED: ERGO400 PO (06:46)
[2023-09-02] MEDS ORDERED: LOKELMA10 GM PO (06:47)
[2023-09-02] MEDS ORDERED: TRULICITY3 MG/0.5 M SQ (06:47)
[2023-09-02 06:49] LABS: International Normalized Ratio 2.25; Prothrombin Time Results 22.7 Sec (9.7-11.5)
[2023-09-02] MEDS ORDERED: Furosemide 10 MG/ML 10ML Vial IV ONE (07:15)
[2023-09-02 07:32] VITALS: BP 129/74
[2023-09-02] MEDS ORDERED: TORSE20 PO (09:41)
== END 2023-09-02 10:00 | disposition home or self-care (01) ==
LOC: ER 05:51
PROVIDERS: Emergency Medicine
DX: J81.1 Chronic pulmonary edema (principal); I50.9 Heart failure, unspecified; N18.6 End stage renal disease; Z99.2 Dependence on renal dialysis; D64.9 Anemia, unspecified; E11.22 Type 2 diabetes mellitus with diabetic chronic kidney disease; I25.2 Old myocardial infarction; Z79.4 Long term (current) use of insulin; Z79.899 Other long term (current) drug therapy; Z95.5 Presence of coronary angioplasty implant and graft; Z79.01 Long term (current) use of anticoagulants; Z95.2 Presence of prosthetic heart valve
CPT/HCPCS: 71046; 80053; 83880; 85025; 85610; 93005; 93010; 96374; 99285-25; J1940